=== PATIENT | female | born 1970 | race Caucasian/White ===

== ENCOUNTER 2017-10-04 17:48 | Emergency (ER) | payer MEDICAID ==
[~2017-10-04] VITALS: Ht 165.1 cm; Wt 59.9 kg
[2017-10-04 17:58] VITALS: BP 108/73
== END 2017-10-04 19:49 | disposition home or self-care (01) ==
LOC: ED 19:43
DX: M26.621 Arthralgia of right temporomandibular joint (principal); R51 Headache; F17.210 Nicotine dependence, cigarettes, uncomplicated
CPT/HCPCS: 70486; 99284

== ENCOUNTER 2017-12-03 09:57 | Emergency (ER) | payer MEDICAID ==
[~2017-12-03] VITALS: Ht 165.1 cm; Wt 62.0 kg
[2017-12-03 10:02] VITALS: BP 96/60
== END 2017-12-03 11:22 | disposition home or self-care (01) ==
LOC: ED 11:00
DX: R68.84 Jaw pain (principal); F17.210 Nicotine dependence, cigarettes, uncomplicated
CPT/HCPCS: 99281

== ENCOUNTER 2018-07-08 17:10 | Emergency (ER) | payer MEDICAID ==
[~2018-07-08] VITALS: Ht 165.1 cm; Wt 66.1 kg
[2018-07-08] MEDS ORDERED: METH750T2 PO (17:50)
[2018-07-08] MEDS ORDERED: DIAZ5TAB PO (17:50)
[2018-07-08] MEDS ORDERED: OXYC-306 PO (17:50)
[2018-07-08] MEDS ORDERED: GABA300C10 PO (17:50)
[2018-07-08] MEDS ORDERED: KETOROLAC 30 MG/1 ML IM ONE (18:30)
[2018-07-08] MEDS ORDERED: KETOROLAC 30 MG/1 ML ONE (18:31)
[2018-07-08 18:38] LABS: BASOPHILS # (AUTO) 0.01 x10^3/uL (0-0.1); BASOPHILS % (AUTO) 0 % (0-1); EOSINOPHILS # (AUTO) 0.01 x10^3/uL (0-0.4); EOSINOPHILS % (AUTO) 0 % (1-7); LYMPHOCYTES # (AUTO) 0.82 x10^3/uL (1-3.4); LYMPHOCYTES % (AUTO) 8 % (22-44); MD NO; MEAN CORPUSCULAR HEMOGLOBIN 32.9 pg (27.0-34.8); MEAN CORPUSCULAR HGB CONC 33.6 g/dL (32.4-35.8); MEAN CORPUSCULAR VOLUME 97.9 fL (80-100); MEAN PLATELET VOLUME 6.8 fL (7.4-10.4); MONOCYTES # (AUTO) 0.06 x10^3/uL (0.2-0.8); MONOCYTES % (AUTO) 1 % (2-9); NEUTROPHILS # (AUTO) 9.29 x10^3/uL (1.8-6.8); NEUTROPHILS % (AUTO) 91 % (42-75); PLATELET COUNT 346 x10^3/uL (130-400); RED BLOOD COUNT 3.87 x10^6/uL (3.82-5.3); RED CELL DISTRIBUTION WIDTH 15.8 % (9.6-15.2)
[2018-07-08 18:49] LABS: ALANINE AMINOTRANSFERASE 35 U/L (12-78); ANION GAP 7 mmol/L (5-15); CALCIUM 8.6 mg/dL (8.5-10.1); CHLORIDE 106 mmol/L (98-107); CREATININE 0.89 mg/dL (0.55-1.02)
[2018-07-08 18:53] LABS: ALKALINE PHOSPHATASE 55 U/L (45-117); BILIRUBIN,TOTAL 0.2 mg/dL (0.2-1.0); TOTAL PROTEIN 6.9 g/dL (6.4-8.2)
[2018-07-08 19:02] VITALS: BP 137/91
== END 2018-07-08 19:30 | disposition home or self-care (01) ==
LOC: ED 19:11
DX: M26.621 Arthralgia of right temporomandibular joint (principal); R68.84 Jaw pain; F17.200 Nicotine dependence, unspecified, uncomplicated
CPT/HCPCS: 36415; 80053; 83880; 85025; 93005; 96372; 99285; J1885

== ENCOUNTER 2018-07-23 10:52 | Emergency (ER) | payer MEDICAID ==
[~2018-07-23] VITALS: Ht 165.1 cm; Wt 63.0 kg
[~2018-07-23 10:52] MED LIST: DIAZ5TAB PO; GABA300C10 PO; METH750T2 PO; OXYC-306 PO
[2018-07-23] MEDS ORDERED: HYDROmorphone 2 MG/ML, 1ML ONE (11:15)
[2018-07-23] MEDS ORDERED: DIAZEPAM 5 MG/ML, 2ML IM ONE (11:30)
[2018-07-23] MEDS ORDERED: HYDROmorphone 2 MG/ML, 1ML IM ONE (11:30)
[2018-07-23] MEDS ORDERED: DIPHENHYDRAMINE 50 MG/ML, 1ML ONE (12:17)
[2018-07-23] MEDS ORDERED: DIPHENHYDRAMINE 50 MG/ML, 1ML IM ONE (12:30)
[2018-07-23] MEDS ORDERED: KETOROLAC 30 MG/1 ML ONE (12:44)
[2018-07-23] MEDS ORDERED: KETOROLAC 30 MG/1 ML IM ONE (13:00)
[2018-07-23 13:01] VITALS: BP 143/87
== END 2018-07-23 13:09 | disposition home or self-care (01) ==
LOC: ED 11:15
DX: M26.621 Arthralgia of right temporomandibular joint (principal)
CPT/HCPCS: 96372; 99284; J1170; J1200; J1885; J3360